=== PATIENT | female | born 1930 | race African-American/Black ===

== ENCOUNTER 2016-09-04 18:44 | Emergency (ER) | payer MEDICARE ==
[~2016-09-04 18:44] MED LIST: Sodium Chloride 0.9% 1,000 ML BAG ONE; Sodium Chloride 0.9% 100 ML BAG ONE
[2016-09-04] MEDS ORDERED: Nitroglycerin 0.4 MG TAB 1 EACH ONE (19:30)
[2016-09-04] MEDS ORDERED: Ondansetron HCl/PF 4 MG/2 ML Vial ONE (19:30)
[2016-09-04 19:36] LABS: #Basophils 0.1 thou/uL (0.0-0.2); #Lymphocytes 1.1 thou/uL (1.20-3.40); #Monocytes 0.3 thou/uL (0.11-0.59); #Neutrophils 13.5 thou/uL (1.40-6.50); %Basophils 0.5 % (0.0-1.0); %Lymphocytes 7.1 % (21.0-51.0); %Monocytes 1.9 % (0.0-10.0); %Neutrophils 90.5 % (42.0-75.0); Hemoglobin 11.6 g/dL (12.0-16.0); Mean Corpuscular HGB CONC 33.5 g/dL (32.0-36.0); Mean Corpuscular Hemoglobin 29.2 pg (27.0-31.0); Mean Corpuscular Volume 87.2 fl (81.0-99.0); Mean Platelet Volume 6.3 fL (7.4-10.4); Platelet Count 457 thou/uL (130-400); RBC Distribution Width 12.4 % (11.5-14.5); Red Blood Cell (RBC) Count 3.99 mill/uL (4.20-5.40); White Blood Cell (WBC) Count 14.9 thou/uL (4.8-10.8)
[2016-09-04 19:45] LABS: ALT (SGPT) 9 U/L (0-55); AST (SGOT) 13 U/L (5-34); Alkaline Phosphatase 84 U/L (40-150); Anion Gap 16 mmol/L (10-20); BUN (Urea Nitrogen) 16 mg/dL (9.8-20.1); Bilirubin, Total 0.3 mg/dL (0.2-1.2); Calc. Creatinine Clearance 0 mL/min (70-130); Calcium 9.2 mg/dL (7.8-10.44); Carbon Dioxide 28 mmol/L (23-31); Chloride 103 mmol/L (98-107); Estimated GFR-MDRD 66; Globulin 3.4 g/dL (2.4-3.5); Glucose 226 mg/dL (83-110); Lipase 15 U/L (8-78); Potassium 3.9 mmol/L (3.5-5.1); Protein, Total 7.4 g/dL (5.8-8.1); Sodium 143 mmol/L (136-145)
[2016-09-04] MEDS ORDERED: Labetalol HCl 100 MG/20 ML VIAL ONE (19:45)
[2016-09-04 19:46] LABS: CKMB 1.4 ng/mL (0-6.6)
[2016-09-04 20:00] LABS: Bilirubin Negative (Negative); Blood, Urine Negative (Negative); Clarity Clear (Clear); Glucose, Urine (Dipstick) 250 mg/dL (Negative); Leukocyte Negative (Negative); Nitrite Negative (Negative); Protein, Urine (Dipstick) 100 mg/dL (Neg-Trace); Urobilinogen 0.2 mg/dL (0.2-1.0); pH, Urine 6.5 (5.0-9.0)
[2016-09-04 20:08] LABS: Bacteria/HPF Rare-Few HPF (None Seen); Other Casts/LPF 0-3 FINELY GRAN LPF (0-3 Hyaline); RBC/HPF 0-3 HPF (0-3); Squamous Epithelial 0-3 HPF (0-3); WBC/HPF 0-3 HPF (0-3)
[2016-09-04] MEDS ORDERED: Metoclopramide HCl 10 MG/2 ML VIAL ONE (20:56)
[2016-09-04] MEDS ORDERED: Piperacillin/Tazobactam 3.375 GM VIAL ONE (21:20)
--- NOTE | 2016-09-04 22:55 | CT ---
NONCONTRAST ENHANCED CT IMAGES ABDOMEN AND PELVIS 09/04/16 HISTORY: 86-year-old with abdominal pain and vomiting. GFR too low to give IV contrast. Exam is limited due to the fact that IV and oral contrast was not given. The lung bases are unremarkable. A small to moderate amount of ascites is seen. The spleen is unrema rkable. A hiatal hernia is seen. The pancreas is unremarkable. The gallbladder is within normal limi ts. Adrenal glands are difficult to assess but what is seen is unremarkable. The kidneys are somewha t heterogeneous, possibly representing renal cysts although hypodense lesions cannot be excluded. Th is is more prominent on the left than on the right. Further workup using elective sonography to rule out malignancy is recommended. There is abnormal thickening of some of the small bowel loops concer tracey for possible enteritis. Bowel ischemia may also have a similar appearance, although I do not se e definite evidence of SMA or celiac vascular calcifications. Calcification is seen in the uterus. IMPRESSION: Abnormally thickened small bowel loop. Bowel ischemia or enteritis cannot be excluded. Surgical cons ultation may be a consideration in this patient if clinically indicated. POS: MEL
== END 2016-09-04 22:00 | disposition short-term general hospital (02) ==
LOC: MADERS 18:44
DX: R10.9 Unspecified abdominal pain (principal); E11.65 Type 2 diabetes mellitus with hyperglycemia; I10 Essential (primary) hypertension; Z79.84 Long term (current) use of oral hypoglycemic drugs
CPT/HCPCS: 36415; 51701; 74176; 80053; 81003; 81015; 82274; 82553; 83605; 83690; 84484; 85025; 93005; 96361; 96365; 96375; 96376; A4353; J2405; J2543; J2765; J7050